=== PATIENT | female | born 1985 | race Caucasian/White ===

== ENCOUNTER 2017-06-21 03:22 | Inpatient (IN) | payer OTHER ==
[2017-06-21] MEDS: ALBUTEROL HFA 8 GM INHALER INH ×4 (01:00→21:00)
[2017-06-21] MEDS ORDERED: LACTATED RINGER'S 1,000 ML IV ×2 (04:08)
[2017-06-21] MEDS ORDERED: BUTORPHANOL 2 MG INJ IV ×2 (04:30)
[2017-06-21] MEDS ORDERED: LIDOCAINE 1% (MPF) 30 ML INJ INJ (04:30)
[2017-06-21] MEDS ORDERED: METHYLERGONOVINE 0.2 MG INJ IM ×2 (04:30→06:00)
[2017-06-21] MEDS ORDERED: OXYTOCIN 30 UNITS/LR 500 ML IV ×3 (04:30→06:00)
[2017-06-21] MEDS ORDERED: MISOPROSTOL 200 MCG TAB PR ×2 (04:30→06:00)
[2017-06-21] MEDS ORDERED: CARBOPROST 250 MCG INJ IM ×2 (04:30→06:00)
[2017-06-21] MEDS: LACTATED RINGER'S 1,000 ML IV (04:39)
[2017-06-21 04:42] LABS: ADD MAN DIFF? NO
[2017-06-21 04:44] LABS: BASOPHILS % 0.2 % (0.0-2.0); EOSINOPHILS # 0.1 10^3/ul (0.0-0.5); EOSINOPHILS % 0.7 % (0.0-7.0); HEMATOCRIT 40.2 % (37.0-47.0); LYMPHOCYTES # 2.9 10^3/ul (0.8-2.9); LYMPHOCYTES % 22.5 % (15.0-51.0); MEAN CORPUSCULAR HEMOGLOBIN 29.4 pg (29.0-33.0); MEAN CORPUSCULAR HGB CONC 34.8 g/dl (32.0-37.0); MEAN CORPUSCULAR VOLUME 84.5 fl (82.0-101.0); MONOCYTE # 0.5 10^3/ul (0.3-0.9); MONOCYTES % 4.2 % (0.0-11.0); NEUTROPHIL # 9.2 10^3/ul (1.6-7.5); PLATELET COUNT 255 10^3/UL (140-415); RED BLOOD COUNT 4.76 10^6/ul (4.20-5.40); RED CELL DISTRIBUTION WIDTH 13.4 % (11.5-14.5)
[2017-06-21 04:44] LABS: WHITE BLOOD COUNT 12.8 10^3/ul (4.8-10.8)
[2017-06-21 04:50] LABS: INR 0.86; PROTIME 11.8 Sec (11.9-14.9); PT RATIO 0.9
[2017-06-21] MEDS: OXYTOCIN 30 UNITS/LR 500 ML IV ×3 (05:42→05:44)
[2017-06-21] MEDS ORDERED: LACTATED RINGER'S 1,000 ML IV* (05:44)
[2017-06-21] MEDS: OXYCODONE/ASPIRIN (4.88/325) TAB PO ×2 (06:00→15:07)
[2017-06-21 06:18] LABS: HEPATITIS B SURFACE ANTIGEN NEGATIVE (NEGATIVE)
[2017-06-21] MEDS: IBUPROFEN 600 MG TAB PO ×3 (07:02→18:21)
[2017-06-21 08:11] LABS: AMPHETAMINE/METHAMPHETAMINE Negative (NEGATIVE); BARBITURATES Negative (NEGATIVE); BENZODIAZEPINES Negative (NEGATIVE); CANNABINOIDS Negative (NEGATIVE); COCAINE Negative (NEGATIVE); OPIATES Negative (NEGATIVE)
[2017-06-21] MEDS: LANOLIN 7 GM TUBE TOP (09:04)
[2017-06-21] MEDS: BENZOCAINE 20% 56 ML SPRAY TOP (09:04)
[2017-06-21 15:18] LABS: RAPID PLASMA REAGIN NONREACTIVE (NR)
[2017-06-22] MEDS: IBUPROFEN 600 MG TAB PO ×5 (00:14→23:31)
[2017-06-22] MEDS: ALBUTEROL HFA 8 GM INHALER INH ×6 (05:00→21:00)
[2017-06-22 08:20] LABS: ADD MAN DIFF? NO
[2017-06-22 08:27] LABS: WHITE BLOOD COUNT 9.8 10^3/ul (4.8-10.8)
[2017-06-22 08:27] LABS: BASOPHILS % 0.2 % (0.0-2.0); EOSINOPHILS # 0.2 10^3/ul (0.0-0.5); EOSINOPHILS % 2.1 % (0.0-7.0); HEMATOCRIT 33.5 % (37.0-47.0); HEMOGLOBIN 11.6 g/dl (12.0-16.0); LYMPHOCYTES # 2.4 10^3/ul (0.8-2.9); LYMPHOCYTES % 24.2 % (15.0-51.0); MEAN CORPUSCULAR HEMOGLOBIN 29.5 pg (29.0-33.0); MEAN CORPUSCULAR HGB CONC 34.6 g/dl (32.0-37.0); MEAN CORPUSCULAR VOLUME 85.2 fl (82.0-101.0); MONOCYTE # 0.4 10^3/ul (0.3-0.9); NEUTROPHIL # 6.8 10^3/ul (1.6-7.5); NEUTROPHILS % 69.1 % (39.0-77.0); PLATELET COUNT 226 10^3/UL (140-415); RED BLOOD COUNT 3.93 10^6/ul (4.20-5.40); RED CELL DISTRIBUTION WIDTH 13.4 % (11.5-14.5)
[2017-06-23] MEDS: ALBUTEROL HFA 8 GM INHALER INH ×3 (01:00→09:00)
[2017-06-23] MEDS: IBUPROFEN 600 MG TAB PO ×2 (05:46→11:41)
[2017-06-23] MEDS: DIPHTH/TET/ACEL PERTUSS (ADULT) 0.5 ML VIAL IM* (09:00)
== END 2017-06-23 12:55 | disposition home or self-care (01) | DRG 775 ==
LOC: OBT 03:22 → L-D 03:27 → OBT 04:08 → L-D 04:00 → PP1 07:45
PROC: 10E0XZZ Delivery of Products of Conception, External Approach (ICD-10-PCS; principal; 2017-06-21)
DX: O70.9 Perineal laceration during delivery, unspecified (principal); Z37.0 Single live birth; Z3A.39 39 weeks gestation of pregnancy
CPT/HCPCS: 80307; 85025; 85610; 85730; 86592; 86850; 86900; 86901; 87340